=== PATIENT | male | born 1990 | race Asian ===

== ENCOUNTER 2024-06-09 13:59 | Emergency (ER) | payer MEDICAID, SELFPAY | END 2024-06-09 14:05 | disposition left against medical advice (07) | PROVIDERS: Emergency Provider Emergency Medicine | DX: Z53.21 Procedure and treatment not carried out due to patient leaving prior to being seen by health care provider (principal) ==

== ENCOUNTER 2024-06-09 19:58 | Emergency (ER) | payer MEDICAID, SELFPAY ==
[2024-06-09 20:02] VITALS: BP 132/78; PULSE 110; RESP 18; TEMP 36.8; O2SAT 95; BMI 22.6
--- NOTE | 2024-06-09 20:22 | PD.EDRME ---
Rapid Medical Screening Exam RME Arrival date/time: 06/09/24 19:58 Time Seen by Provider: 06/09/24 20:21 Vital signs: Vital Signs Temperature 98.2 F 06/09/24 20:02 Pulse Rate 110 H 06/09/24 20:02 Respiratory Rate 18 06/09/24 20:02 Blood Pressure 132/78 H 06/09/24 20:02 Pulse Oximetry (%) 95 06/09/24 20:02 Oxygen Delivery Method Room Air 06/09/24 20:02 RME Narrative: 33yo male BIB PPD presents to the ED for a medical clearance.
--- NOTE | 2024-06-09 20:46 | PD.EDADULT ---
ED General RME/HPI General Chief complaint: Epistaxis/Nasal Foreign Body Stated complaint: NOSE BLEED, MEDICAL CLEARANCE Time Seen by Provider: 06/09/24 20:21 Arrival date/time: 06/09/24 19:58 CC: Medical clearance HPI patient presents the ER via EMS with PD at bedside stating he needs a medical clearance. This is the third time the patient has been seen by EMS I personally saw him on the last visit when he was transported via EMS for nosebleed that had stopped, at that time the patient was brought up to the front of the triage area and elected to walk after normal conversation with EMT out the front door of the ER and away. Patient had no active bleeding at that time. Patient returns now in the EMS gurney, stating that he cannot walk . With prompting patient will got up and ambulated without complication. RME / HPI RME / HPI narrative: 33yo male BIB PPD presents to the ED for a medical clearance. Related Data Previous Rx's ?Medication ?Instructions ?Recorded Hydrocodone/Acetaminophen * (NORCO 1 tab PO Q4H PRN severe pain #20 12/04/14 10/325 *) tabs ibuprofen 600 mg tablet 600 mg PO Q6HR PRN PAIN #60 tabs 12/04/14 Allergies Allergy/AdvReac Type Severity Reaction Status Date / Time NKA* Allergy Uncoded 12/04/14 09:36 Review of Systems Review of Systems Narrative Review of Systems: GEN: No fever, no chills, no weight loss EYES: No discharge, no visual changes, no pain HEENT: No ear pain, no congestion, no sore throat, + bloody nose PULM: No shortness of breath, no cough, no congestion CV: No chest pain, no dyspnea on exertion, no palpitations GI: No nausea, no vomiting, no diarrhea, no pain, no constipation : No frequency, no urgency, no dysuria MUSC/SKEL: No joint pain, no back pain SKIN: No rash PSYCH: No hallucinations, no depression HEME/LYMPH: No easy bleeding or bruising tendencies NEURO: No weakness, no headache Past Medical History Past Medical History CARDIAC: Negative Congestive Heart Failure RESPIRATORY: Negative Chronic Obstructive Pulmonary Disease (COPD) GENITOURINARY: Negative Renal Disease ENDOCRINE: Negative Diabetes Mellitus Type 1 or Diabetes Mellitus Type 2 Social History SMOKING STATUS: Unknown if ever smoked ED Exam Narrative Physical exam: [General: Not in any acute distress Head normocephalic HEENT: Dried blood under the right nares. Eyes pupils are PERRLA EOMs are intact mouth pink dry membranes uvula is midline swallow symmetrical. Within acceptable limits Neck is supple nontender Chest equal chest rise nontender to palpation Respiratory: Clear to auscultation no wheezes crackles or rubs CV: Rate rhythm is regular no murmurs rubs or clicks Abdomen is flat, soft nontender no masses positive bowel sounds all 4 quadrants Back: No CVA tenderness no spinous process tenderness from cervical spine thoracic and lumbar spine Skin: Intact no petechiae rash induration ulceration or crepitus Extremities: Moving all extremity against resistance cap refill less than 2 seconds neurosensory intact. Patient observed ambulating pivoting and sitting without complication. Neuro: Awake alert oriented x32, place, Glascow coma 15 no focal deficits] subtle slurred speech is indicated by the PD officer patient has been drinking alcohol all day. Course Quality Measures none Vital Signs Vital signs: Vital Signs Temperature 98.2 F 06/09/24 20:02 Pulse Rate 110 H 06/09/24 20:02 Respiratory Rate 18 06/09/24 20:02 Blood Pressure 132/78 H 06/09/24 20:02 Pulse Oximetry (%) 95 06/09/24 20:02 Oxygen Delivery Method Room Air 06/09/24 20:02 [facility] Patient data External records reviewed:: [facility] previous records and EMS form Clinical information provided by:: EMS and law enforcement Social determinants that could affect healthcare access:: none Patient has the following chronic illnesses:: None How is presenting disease/condition affected by chronic disease/condition?: uneffected by Evaluation data The following diagnostics were reviewed and interpreted by me:: other (specify) (None) Lab and/or radiology exams considered but not ordered:: None Interpretation Summary: Medically cleared for incarceration Medications Medications considered but not ordered:: None Medication administrations:: None Consultations Consultation(s) initiated? (list below): No Diagnosis Differential Diagnosis ED Complaint MDM: Alcohol intoxication epistaxis electrolyte imbalance Most likely diagnosis given after review of the tests above:: Cleared for incarceration Admission Indicated Admission indicated?: not indicated Explain why admission is indicated or not indicated:: Stable for group home Admission Request Was there a request for admission?: No Disposition Plan Disposition Plan: Discharge Discharge Attestation Discharge Attestation: The patient and all family members were given an opportunity to ask questions and understood the discharge instructions. Discharge instructions specifically effects, indications for sooner follow up or return to the emergency department, and the expected course of current diagnosis. Patient condition: Stable Medical Decision Making Differential Diagnosis Differential Diagnosis: Alcohol intoxication epistaxis electrolyte imbalance Discharge Plan Plan Patient Disposition: Skilled Nursing/Court/Law Patient condition on transfer: Stable Prescriptions/Referrals Prescriptions/Med Rec: No Action ibuprofen 600 MG tablet 600 mg PO Q6HR PRN (Reason: PAIN) Qty: 60 0RF Hydrocodone/Acetaminophen * (NORCO 10/325 *) 1 TAB tablet 1 tab PO Q4H PRN (Reason: severe pain) Qty: 20 0RF Problem List Clinical Impression: Medical clearance for incarceration Patient/Caregiver Discharge Instructions Print Language: Georgian Stand Alone Forms: Alisson Soria. YAZMIN/DANGELO Supervising Physician YAZMIN/DANGELO Supervising Physician: Julian Mcclain ENP
[2024-06-09 21:24] VITALS: RESP 18
== END 2024-06-09 21:25 ==
PROVIDERS: Emergency Provider Emergency Medicine
DX: Z02.89 Encounter for other administrative examinations (principal); R04.0 Epistaxis
CPT/HCPCS: 99281